=== PATIENT | female | born 1990 | race Hispanic/Latino ===

== ENCOUNTER 2017-10-06 12:39 | Outpatient (CLI) | payer MEDICAID ==
[2017-10-06 13:01] VITALS: BP 121/85
[2017-10-06] MEDS ORDERED: VISTARIL PO ONE (13:30)
== END 2017-10-06 13:40 | disposition home or self-care (01) ==
LOC: TRG 12:39
PROVIDERS: ATTEND Obstetrics & Gynecology
DX: O47.1 False labor at or after 37 completed weeks of gestation (principal); Z3A.37 37 weeks gestation of pregnancy

== ENCOUNTER 2017-10-10 07:22 | Outpatient (CLI) | payer MEDICAID ==
[2017-10-10 07:40] VITALS: BP 119/75
== END 2017-10-10 08:05 | disposition home or self-care (01) ==
LOC: TRG 07:22
PROVIDERS: ATTEND Obstetrics & Gynecology
DX: O47.03 False labor before 37 completed weeks of gestation, third trimester (principal); Z3A.37 37 weeks gestation of pregnancy
CPT/HCPCS: 59025